=== PATIENT | female | born 1980 ===

== ENCOUNTER 2017-03-15 07:50 | Inpatient (IN) ==
[2017-03-15] MEDS: 0.9 % Sodium Chloride 1,000 ML IVC SCH (09:30)
[2017-03-15] MEDS ORDERED: Naloxone 0.4 MG/ML INJ IVP PRN (09:57)
[2017-03-15] MEDS ORDERED: Ondansetron 4 MG/2 ML VIAL IVP PRN (09:57)
--- NOTE | 2017-03-15 10:07 | Internal Med History&Physical ---
Date of Encounter: 03/20/17 Time of Encounter: 10:07 Assessment and Plan (1) Abdominal pain Status: Inactive 36/female transferred from [facility]. CT abdomen: Suggestive of diverticulitis. Plan: Admit as inpatient.: Patient needs IV antibiotics/serial abdominal exam/close monitoring Nothing by mouth. Intravenous ciprofloxacin 400 mg twice a day. Intravenous metronidazole 500 milligram 3 times a day. Pain control with morphine. Labs in the morning. Surgery on board. We will follow the recommendations from surgery. Qualifiers: Abdominal location: lower abdomen, unspecified Qualified Code(s): R10.30 - Lower abdominal pain, unspecified (2) Diverticulitis Status: Acute Possibility of her diverticulitis is extremely high. patient may need outpatient endoscopy/colonoscopy. The reason for this endoscopy/colonoscopy is patient has strong history of cancer (basal cell carcinoma of skin/calcifications in her breast.) . (3) DVT prophylaxis Status: Acute SCD Medical decision making: This patient has a moderate to severe risk of worsening in spite of being on appropriate medication to the underlying comorbid conditions. Internal Medicine - H&P: HPI Chief complaint: abdominal pain Admitted From: Hospital to Hospital Transfer Plans for Post Hospital Care: Home History of present illness: PCP: Nurse practitioner Shawn Sanz Brief past medical history: Basal cell carcinoma of the skin, kidney stones, seizure disorder, childhood asthma, History of present illness: Patient had ongoing GI symptoms in terms of her diarrhea for last 24 hours. The frequency and the consistency of stool is progressively getting worse and that is the reason patient was evaluated at [facility]. During that evaluation patient was complaining assessment abdominal pain. She underwent CT scan of the abdomen. CT scan of the abdomen was suggestive of possible diverticulitis/possible appendicitis. In view of this finding patient was transferred to this hospital for further evaluation. Upon my examination: Patient was complaining of ongoing left lower quadrant abdominal pain, nonradiating, localized, associated with the defecation and relieved by rest. Patient denies chest pain, shortness of breath, dizziness or constipation. Reason for transfer: Worsening diverticulitis/appendicitis for further management and may need a surgical intervention. family history: Diverticulosis/diverticulitis in both her Past Med Surg Social Fam HX - Past Medical History Medical history: asthma, cancer, kidney stones, seizures, other Psychiatric history: no psych history - Social History Smoking Status: Current every day smoker Packs per day: 2 cigarettes Smokeless Tobacco Status: No Alcohol use: occasionally Drug use: none Internal Medicine - H&P: Meds Naproxen [EC-Naprosyn] 500 mg PO BID 03/15/17 [History] Pnv with Ca,No.72/Iron/FA [Pnv Plus Multivit Tab] 1 tab PO DAILY [History] Zolpidem [Ambien] 10 mg PO HS PRN 03/15/17 [History] Ciprofloxacin [Cipro] 500 mg PO BID #14 tablet 03/17/17 [Rx] HYDROcodone/Acet 5/325 mg [[place] 5-325 mg] 1 tab PO Q6HR PRN #6 tablet 03/17/17 [Rx] metroNIDAZOLE [Flagyl] 500 mg PO TID #21 tablet 03/17/17 [Rx] 3 Allergy/AdvReac Type Severity Reaction Status Date / Time latex Allergy Rash Verified 03/15/17 09:42 All Systems PM: A 10-system review of systems was performed and is negative for pertinent findings except as documented above in the HPI. - Constitutional Constitutional: no chills, no fever(s), no night sweats - EENT Eyes: no change in vision, no discharge, no pain, no photophobia Ears: no ear discharge, no ear pain, no tinnitus Nose, mouth and throat: no dysphagia, no nasal discharge, no neck pain, no sore throat - Cardiovascular Cardiovascular ROS IM: no chest pain, no diaphoresis, no dyspnea, no lightheadedness, no palpitations, no syncope - Respiratory Respiratory: no cough, no dyspnea, no wheezing, no excessive phlegm production - Gastrointestinal Gastrointestinal: abdominal pain, belching, bloating, diarrhea, nausea, vomiting , no hematemesis, no hematochezia, no melena - Genitourinary Genitourinary: no change in urinary stream, no dysuria, no flank pain, no hematuria - Musculoskeletal Musculoskeletal ROS IM: no numbness, no tingling - Integumentary Integumentary IM: no rash, no unusual bruising - Neurological Neurological ROS: no confusion, no convulsions, no focal weakness, no numbness, no tingling, no tremor(s) - Hematologic/Lymphatic Hematologic/Lymphatic: no easy bruising - Constitutional Vitals: Temp Pulse Resp BP Pulse Ox 98.3 F 58 14 114/69 99 03/15/17 09:48 03/15/17 09:48 03/15/17 09:48 03/15/17 09:48 03/15/17 09:48 General appearance: Present: A&O X 3, pleasant, no acute distress, answers questions appropriately - Head Head exam: Present: atraumatic, normocephalic - Eye Eye exam: Present: PERRL, conjuntiva pink, sclera anicteric Pupils: Present: PERRL - Neck Neck exam general surgery: Present: supple, trachea midline. Absent: lymphadenopathy - Respiratory Respiratory exam: Present: CTAB. Absent: accessory muscle use, rales, rhonchi, wheezes - Cardiovascular Cardiovascular exam: Present: RRR, +S1, +S2. Absent: diastolic murmur, gallop, rubs, systolic murmur - GI/Abdominal GI/Abdominal exam: Present: normal bowel sounds, soft, tenderness, no peritoneal signs. Absent: distended - Extremities Exam Extremities exam: Present: warm, radial pulses palpable and symmetrical. Absent : calf tenderness, cyanotic, pedal edema - Neurological Exam Neurological exam: Present: CN II-XII intact, oriented X3, no focal deficits. Absent: pronater drift, facial droop, speech deficit - Skin Skin exam: Present: dry, intact Internal Med - H&P Results - Labs CBC & Chem 7: 03/16/17 03:45 03/16/17 03:45
[2017-03-15] MEDS: *HR* Morphine 2 MG/ML SYRINGE IVP PRN ×2 (10:38→13:58)
[2017-03-15 11:20] LABS: Bilirubin,Urine Negative (Negative); Blood,Urine Negative (Negative); Clarity,Urine Clear (Clear); Color,Urine Yellow (Yellow); Glucose,Urine (UA) Normal (Normal); Ketones,Urine 15 mg/dL (Negative); Leukocyte Esterase,Urine Negative (Negative); Nitrite,Urine Negative (Negative); PH,Urine 5.5 pH Units (5.0-8.0); Protein,Urine Negative (Neg-Trace); Specific Gravity,Urine 1.026 (1.010-1.025); Urobilinogen,Urine Normal (Normal)
[2017-03-15] MEDS: MetroNIDAZOLE 500 MG/100 ML 500 MG/100 ML BAG IVPB SCH ×2 (11:38→20:41)
[2017-03-15] MEDS ORDERED: MetroNIDAZOLE 500 MG/100 ML 500 MG/100 ML BAG IVPB SCH (16:00)
[2017-03-15] MEDS ORDERED: 0.9 % Sodium Chloride 500 ML IVC ONE (16:58)
--- NOTE | 2017-03-15 17:07 | General Surgery Consult Note ---
Date of Encounter: 03/15/17 Time of Encounter: 16:45 History of Present Illness Reason for consult: abdominal pain Requesting physician: Bentley Miller History of present illness: 36-year-old female transferred from [facility] after presenting there with acute onset right-sided abdominal pain with nausea. The patient indicates symptoms started in the epigastrium approximately 1500 or 1600 , 03/14/17. The patient describes severe nausea and pain preventing her from sleep. She presented to the [facility] ED early this a.m. for further evaluation and treatment. Laboratories were completely unremarkable CT of the abdomen and pelvis, which I was ultimately able to review with [facility], tiny bilateral renal calculi without hydronephrosis; mild injection of the fat in the right lower quadrant surrounding the appendix and cecum along with cecal diverticulosis. The appendix appeared normal in caliber and filled with air. The normal appearing appendix led the radiologist to conclude that the patient' s symptoms were most likely secondary to cecal diverticulitis or early colitis. The patient's symptoms were significant enough to transfer the patient to [facility] for further evaluation and treatment including surgical consultation. Past medical history: Asthma, skin cancer (basal cell carcinoma), kidney stones and a seizure disorder. Surgical history: Removal of a basal cell carcinoma from the posterior thorax; bilateral breast biopsies for benign disease Allergies: No known drug allergies but the patient believes she is allergic to latex (latex testing not completed) Medications: No routine home medications Medical records indicate prior prescriptions: Naprosyn 500 mg by mouth twice a day; vitamins 1 by mouth daily zolpidem 10 mg by mouth daily at bedtime as needed for sleep Social history: The patient indicates continued tobacco use but not on a daily basis; she is vague as to quantity and frequency. Patient admits to rare alcoholic beverage again vague as to quantity and frequency. She denies any illicit drug use. Patient states that she is Family history: History of diverticulosis/diverticulitis affecting both parents On physical examination: Age-appropriate female in no obvious distress, resting comfortably in her hospital bed. Patient EKG has been continuously nauseated since her transfer to [facility]. No emesis. Maximum temperature 99.8, pulse 61, respirations 16, blood pressure 110/69; SPO2 on room air 99-100% Skin: Warm, no obvious jaundice Lungs: Clear bilaterally to auscultation, no obvious abdominal pain with deep inspiration Cardiac: Regular rate, no appreciable murmurs Abdomen: Soft, nondistended with tenderness in the epigastrium; minimal tenderness in the right lower quadrant. No tenderness left lower quadrant. No discernible intra-abdominal masses, no rebound. Active bowel sounds. Extremities: No obvious clubbing, cyanosis, or edema. Laboratories: White count 7.0, hemoglobin 13.1, hematocrit 38.6; platelet count 276,000; differential within normal limits. Electrolytes notable for chloride of 110 and otherwise normal; BUN 13, creatinine 0.73. Levaquin 0.6, AST 19, ALT 10, alkaline phosphatase 63; lipase 15; phosphorus 2.0, magnesium 1.9 Urinalysis: Clear yellow urine with specific gravity less than or equal to 1.005 ; ketones 15; no significant cell count Impression: 36-year-old female with new onset right-sided abdominal pain and nausea. To clinical examination, the pain is mid epigastrium with very little right lower quadrant findings. CT is suggestive of cecal diverticulitis or early colitis, however, acute appendicitis cannot be entirely excluded. It is possible for a CT to be falsely negative in the first 24 hours of abrupt onset symptoms. Recommendations: Maintain nothing by mouth but allow ice chips sparingly IV antibiotics, Cipro and metronidazole initiated on transfer to [facility] Repeat labs in the a.m. Repeat abdominal exams; I will follow along with you. My findings and recommendations have been discussed with the patient and her family in attendance. Past Med Surg Social Fam HX - Past Medical History Medical history: asthma, cancer, kidney stones, seizures, other Psychiatric history: no psych history - Social History Smoking Status: Current every day smoker Packs per day: 2 cigarettes Smokeless Tobacco Status: No Alcohol use: occasionally Drug use: none Medications and Allergies Naproxen [EC-Naprosyn] 500 mg PO BID 03/15/17 [History] Pnv with Ca,No.72/Iron/FA [Pnv Plus Multivit Tab] 1 tab PO DAILY [History] Zolpidem [Ambien] 10 mg PO HS PRN 03/15/17 [History] 3 Allergy/AdvReac Type Severity Reaction Status Date / Time latex Allergy Rash Verified 03/15/17 09:42 Review of Systems All systems PM: A 10-system review of systems was performed and is negative for pertinent findings except as documented above in the HPI. General Surgery Exam Initial Vital Signs Temp Pulse Resp BP Pulse Ox 98.3 F 58 14 114/69 99 03/15/17 09:48 03/15/17 09:48 03/15/17 09:48 03/15/17 09:48 03/15/17 09:48 Exam Initial Vital Signs Temp Pulse Resp BP Pulse Ox 98.3 F 58 14 114/69 99 03/15/17 09:48 03/15/17 09:48 03/15/17 09:48 03/15/17 09:48 03/15/17 09:48 Results - Labs Abnormal lab results Ur Specific [place] 1.026 (1.010-1.025) H 03/15/17 11:00 Urine Ketones 15 mg/dL (Negative) H 03/15/17 11:00 All other labs normal. Consult Discharge Plan - Plan Referrals: Shawn Sanz CLOTH MERCERIZING SUPERVISOR [Primary Care Provider] -
[2017-03-15] MEDS: Pantoprazole 40 MG VIAL IVP SCH (17:22)
[2017-03-15] MEDS: *HR* HYDROmorphone 2 MG/ML SYRINGE IVP PRN ×2 (17:24→20:42)
[2017-03-15] MEDS: *HR* Promethazine 25 MG/ML VIAL IVP PRN ×2 (17:24→21:23)
[2017-03-16] MEDS: *HR* HYDROmorphone 2 MG/ML SYRINGE IVP PRN ×5 (01:15→19:54)
[2017-03-16] MEDS: *HR* Promethazine 25 MG/ML VIAL IVP PRN ×2 (01:16→05:11)
[2017-03-16] MEDS: 0.9 % Sodium Chloride 1,000 ML IVC SCH (02:36)
[2017-03-16] MEDS: MetroNIDAZOLE 500 MG/100 ML 500 MG/100 ML BAG IVPB SCH ×3 (04:08→19:53)
[2017-03-16 04:42] LABS: Basophils % 0.2 %; Eosinophils # 0.1 K/mcL (0.0-0.6); Eosinophils % 2.7 %; Hematocrit 34.8 % (35.3-44.9); Hemoglobin 11.1 g/dL (11.5-15.4); Immature Granulocytes % 0.2 % (0-4); Lymphocytes # 1.2 K/mcL (0.6-4.6); Lymphocytes % 24.8 %; Mean Corpuscular HGB Conc 31.9 g/dL (31.6-35.5); Mean Corpuscular Hemoglobin 29.1 pg (28.0-33.3); Mean Corpuscular Volume 91.1 fL (83.0-100.0); Mean Platelet Volume 10.2 fL (9.4-12.4); Monocytes # 0.6 K/mcL (0.0-1.3); Monocytes % 12.8 %; Neutrophils # 2.8 K/mcL (1.6-8.9); Platelet Count 229 K/mcL (140-400); Red Blood Count 3.82 M/mcL (3.82-4.97); Red Cell Distribution Width 12.3 % (11.5-14.5); Segmented Neutrophils % 59.3 %
[2017-03-16 04:45] LABS: INR 1.3; Prothrombin Time 13.9 Seconds (9.4-12.1)
[2017-03-16 04:48] LABS: Activated Partial Thrombo Time 30.7 Seconds (26.0-36.0)
[2017-03-16 05:04] LABS: Alanine Aminotransferase 8 Units/L (7-52); Albumin 3.4 g/dL (3.5-5.7); Albumin/Globulin Ratio 1.7 (1.1-2.2); Alkaline Phosphatase 44 Units/L (34-104); Aspartate Amino Transferase 14 Units/L (13-39); BUN/Creatinine Ratio 14 (6-26); Bilirubin,Total 0.3 mg/dL (0.3-1.0); Blood Urea Nitrogen 10 mg/dL (6-20); Calcium 8.3 mg/dL (8.6-10.3); Carbon Dioxide 24 mEq/L (23-29); Chloride 110 mEq/L (98-107); Chol/HDL Ratio 2.5 (0-4.9); Cholesterol 107 mg/dL (< 200); Glucose 121 mg/dL (70-105); HDL Cholesterol 42 mg/dL (40-59); LDL Cholesterol,Calculated 57 mg/dL (0-99); Magnesium 1.8 mg/dL (1.6-2.6); Osmolality,Calculated 290 (280-300); Phosphorous 2.3 mg/dL (2.7-4.5); Potassium 3.9 mEq/L (3.5-5.1); Sodium 140 mEq/L (136-145); Total Protein 5.4 g/dL (6.4-8.9); Triglycerides 42 mg/dL (< 150); eGFR For African Americans > 60 (> 60); eGFR For Non-African Americans > 60 (> 60)
[2017-03-16] MEDS: Pantoprazole 40 MG VIAL IVP SCH (10:28)
--- NOTE | 2017-03-16 11:02 | Internal Med Progress Note ---
Date of Encounter: 03/16/17 Time of Encounter: 11:00 - Assessment and plan (1) Diverticulitis Current Visit: Yes Status: Acute Assessment and plan: Continue conservative management for diverticulitis. Continue with IV Cipro and Flagyl. Continue with IV fluids. I will give her clear liquid diet today and advance as tolerated by tomorrow. Appreciate surgery's. No plans for surgery. Continue with pain control and antiemetics (2) DVT prophylaxis Current Visit: Yes Status: Acute Assessment and plan: Patient is ambulating. - Subjective Interval history: Patient was seen and examined. There has been no acute events. She says her abdominal pain is significantly improved. She has used Dilaudid IV sporadically. She has been afebrile. She has been nothing by mouth. She is asking to eat. - Constitutional Vitals: Temp Pulse Resp BP Pulse Ox 98.4 F 64 16 112/66 100 03/16/17 10:36 03/16/17 10:36 03/16/17 10:36 03/16/17 10:36 03/16/17 10:36 General appearance: Present: A&O X 3, pleasant, no acute distress, answers questions appropriately Exam: GEN: NAD CVS: RRR. S1, S2, No m/r/g RESP: CTAB ABD: Soft, there is mild tenderness in the left upper and lower quadrants ND, + BS EXT: No edema. 2+ DP. No rashes NEURO: Nonfocal Internal Medicine: Result - Labs CBC & Chem 7: 03/16/17 03:45 03/16/17 03:45 Labs: Short CBC 03/16/17 Range/Units 03:45 WBC 4.8 (4.3-11.1) K/mcL Hgb 11.1 L D (11.5-15.4) g/dL Hct 34.8 L (35.3-44.9) % Plt Count 229 (140-400) K/mcL Neutrophils # 2.8 (1.6-8.9) K/mcL BMP 03/16/17 03:45 Sodium 140 Potassium 3.9 Chloride 110 H Carbon Dioxide 24 BUN 10 Creatinine 0.74 Glucose 121 H Calcium 8.3 L Liver Function 03/16/17 Range/Units 03:45 Total Bilirubin 0.3 (0.3-1.0) mg/dL AST 14 (13-39) Units/L ALT 8 (7-52) Units/L Alkaline Phosphatase 44 (34-104) Units/L Albumin 3.4 L (3.5-5.7) g/dL Urine 03/15/17 Range/Units 11:00 Urine Color Yellow (Yellow) Urine Clarity Clear (Clear) Urine pH 5.5 (5.0-8.0) pH Units Ur Specific [place] 1.026 H (1.010-1.025) Urine Protein Negative (Neg-Trace) mg/dL Urine Glucose (UA) Normal (Normal) mg/dL - ABG Interpretation ABG results: PT/INR, D-dimer PT 13.9 Seconds (9.4-12.1) H 03/16/17 03:45 Consult Discharge Plan - Plan Referrals: Shawn Sanz, SPORTS FITNESS AND WELLNESS DIRECTOR [Primary Care Provider] -
--- NOTE | 2017-03-16 17:40 | General Surgery Progress Note ---
Date of Encounter: 03/16/17 Time of Encounter: 17:31 Subjective Patient reports: feels better Narrative: General Surgery - patient feeling better; tolerating clear liquids. No N/V. Patient remains afebrile, most recently 98.0, pulse 64, respirations 14, blood pressure 109/67 Lungs: Clear; no pain on deep inspiration Abdomen: Soft, nondistended, minimal residual tenderness in the right lower quadrant. No rebound. No appreciable intra-abdominal masses. Active bowel sounds. CT abdomen/pelvis reviewed - the appendix is described as normal/air filled. Wray are not thickened. Pericecal inflammation noted but does not appear to be related to the appendix. Laboratories: White count 4.8, hemoglobin 11.1 with hematocrit 44.8- consistent with IV fluids; differential within normal limits Electrolytes, BUN, creatinine normal limits Urine output 1400 mL in the last 24 hours. Again reflective of IV hydration/ IV fluids. Impression: Pericecal inflammation most likely due to localized diverticulitis responding to antibiotics. Tolerating clear liquids Recommendations: No surgical intervention required at this time, however, I do recommend colonoscopy in 6-8 weeks following resolution of the acute cecal diverticulitis. An appropriate referral to me or any other physician capable of performing colonoscopies can be arranged by the patient's PCP at that time. Thank you for this consultation, I will sign off. Objective Vital Signs - Last 8 Hours Temp Pulse Resp BP Pulse Ox 03/16/17 14:35 98.0 F 64 14 109/67 98 03/16/17 10:36 98.4 F 64 16 112/66 100 Intake and Output 03/16/17 03/16/17 03/16/17 07:59 15:59 23:59 Intake Total 420 / 420 1440 / 1440 200 / 200 Output Total 850 / 850 550 / 550 Balance -430 / -430 890 / 890 200 / 200 Intake: IV Fluids 300 / 300 800 / 800 200 / 200 0.9 % Sodium Chloride 1,000 ML 700 / 700 @ 70 mls/hr IVC .[id number] [facility] Rx #:[id number] Cipro Premix 400 MG/200 ML 400 200 / 200 200 / 200 mg In 200 ml @ 200 mls/hr IVPB Q12H [facility] Rx#:[id number] Flagyl Premix 500 MG/100 ML 500 100 / 100 100 / 100 mg In 100 ml @ 100 mls/hr IVPB Q8H [facility] Rx#:[id number] Oral 120 / 120 640 / 640 Output: Urine 850 / 850 550 / 550 Other: Meal Clear Percent of Meal Consumed 0% # Bowel Movements 0 Weight 49.895 kg Blood Glucose* 74 Patient Weight 03/16/17 23:59 Weight 49.895 kg - Labs 03/16/17 03:45 03/16/17 03:45 Diabetes panel 03/16/17 Range/Units 03:45 Sodium 140 (136-145) mEq/L Potassium 3.9 (3.5-5.1) mEq/L Chloride 110 H (98-107) mEq/L Carbon Dioxide 24 (23-29) mEq/L BUN 10 (6-20) mg/dL Creatinine 0.74 (0.60-1.20) mg/dL Glucose 121 H (70-105) mg/dL Calcium 8.3 L (8.6-10.3) mg/dL AST 14 (13-39) Units/L ALT 8 (7-52) Units/L Alkaline Phosphatase 44 (34-104) Units/L Albumin 3.4 L (3.5-5.7) g/dL Triglycerides 42 (< 150) mg/dL HDL Cholesterol 42 (40-59) mg/dL Calcium panel 03/16/17 Range/Units 03:45 Calcium 8.3 L (8.6-10.3) mg/dL Phosphorus 2.3 L (2.7-4.5) mg/dL Albumin 3.4 L (3.5-5.7) g/dL Pituitary panel 03/16/17 Range/Units 03:45 Sodium 140 (136-145) mEq/L Potassium 3.9 (3.5-5.1) mEq/L Chloride 110 H (98-107) mEq/L Carbon Dioxide 24 (23-29) mEq/L BUN 10 (6-20) mg/dL Creatinine 0.74 (0.60-1.20) mg/dL Glucose 121 H (70-105) mg/dL Calcium 8.3 L (8.6-10.3) mg/dL Adrenal panel 03/16/17 Range/Units 03:45 Sodium 140 (136-145) mEq/L Potassium 3.9 (3.5-5.1) mEq/L Chloride 110 H (98-107) mEq/L Carbon Dioxide 24 (23-29) mEq/L BUN 10 (6-20) mg/dL Creatinine 0.74 (0.60-1.20) mg/dL Glucose 121 H (70-105) mg/dL Calcium 8.3 L (8.6-10.3) mg/dL Total Bilirubin 0.3 (0.3-1.0) mg/dL AST 14 (13-39) Units/L ALT 8 (7-52) Units/L Alkaline Phosphatase 44 (34-104) Units/L Albumin 3.4 L (3.5-5.7) g/dL Consult Discharge Plan - Plan Referrals: Shawn Sanz, TIRE SERVICE TECHNICIAN [Primary Care Provider] -
[2017-03-16] MEDS: Ondansetron 4 MG/2 ML VIAL IVP PRN (17:58)
[2017-03-17] MEDS: *HR* HYDROmorphone 2 MG/ML SYRINGE IVP PRN ×2 (00:25→04:46)
[2017-03-17] MEDS: Ondansetron 4 MG/2 ML VIAL IVP PRN (00:33)
[2017-03-17] MEDS: MetroNIDAZOLE 500 MG/100 ML 500 MG/100 ML BAG IVPB SCH (03:31)
[2017-03-17] MEDS ORDERED: *HR* HYDROcodone/Acet 5/325 mg TABLET PO PRN (05:05)
[2017-03-17] MEDS: *HR* Promethazine 25 MG/ML VIAL IVP PRN (05:11)
[2017-03-17 07:39] VITALS: BP 101/66
[2017-03-17] MEDS: Pantoprazole 40 MG VIAL IVP SCH (08:50)
--- NOTE | 2017-03-17 09:24 | Discharge Summary ---
Date of Encounter: 03/17/17 Time of Encounter: 09:30 - Discharge Diagnosis (1) Diverticulitis Priority: Primary Status: Acute - Discharge Medications Prescriptions: HYDROcodone/Acet 5/325 mg [[place] 5-325 mg] 1 tab PO Q6HR PRN #6 tablet PRN Reason: Pain Ciprofloxacin [Cipro] 500 mg PO BID #14 tablet metroNIDAZOLE [Flagyl] 500 mg PO TID #21 tablet Home Medications: Naproxen [EC-Naprosyn] 500 mg PO BID 03/15/17 [History] Pnv with Ca,No.72/Iron/FA [Pnv Plus Multivit Tab] 1 tab PO DAILY [History] Zolpidem [Ambien] 10 mg PO HS PRN 03/15/17 [History] Ciprofloxacin [Cipro] 500 mg PO BID #14 tablet 03/17/17 [Rx] HYDROcodone/Acet 5/325 mg [[place] 5-325 mg] 1 tab PO Q6HR PRN #6 tablet 03/17/17 [Rx] metroNIDAZOLE [Flagyl] 500 mg PO TID #21 tablet 03/17/17 [Rx] Allergies/Adverse Reactions: 3 Allergy/AdvReac Type Severity Reaction Status Date / Time latex Allergy Rash Verified 03/15/17 09:42 Date of admission: 03/15/17 09:57 Primary care physician: Shawn Sanz CNP Consults: 03/15/17 10:01 Consult to Surgery [CONS] Routine Consulting Provider: [facility] Reason for Consult: ? Appendicitis unlikely. High probability of diverticulitis. Call Completed: Yes - Patient Status Disposition: Home, Self-Care Condition: Fair Overall status at discharge: patient is back to baseline - Discharge Instructions Instructions: Diverticulitis (DC) Follow Up With: Shawn Sanz CNP [Primary Care Provider] - Forms: Inpatient Work/School Release - Diet and Activity Activity: resume usual activities as tolerated Diet: advance to your usual diet (start with full liquid diet today and tomorrow and advance to regular as tolerated) Hospital course: Ms. Mederos is a 36 year old female with history of basal cell carcinoma of the skin , kidney stones, seizure disorder, childhood asthma, who presented to us with complaints of abdominal pain that has been progressively getting worse. She underwent a CT of abdomen and pelvis which showed possible diverticulitis versus appendicitis. She was evaluated by surgery who thought this is mostly diverticulitis. She was treated conservatively with IV fluids and bowel rest as well as IV Cipro and Flagyl. She had her diet advanced slowly. She was tolerating diet on 03/17/2017 was discharged home with follow-up with with her primary care physician. We recommended the patient be referred to Dr. de guzman in about 6 weeks for colonoscopy. - Time Spent with Patient Total time spent providing and/or coordinating discharge services: Greater than 30 minutes - Constitutional Vitals: Temp Pulse Resp BP Pulse Ox 98.3 F 50 12 101/66 98 03/17/17 07:15 03/17/17 07:15 03/17/17 07:15 03/17/17 07:15 03/17/17 07:15 General appearance: Present: A&O X 3, pleasant, no acute distress, answers questions appropriately Exam: GEN: NAD CVS: RRR. S1, S2, No m/r/g RESP: CTAB ABD: Soft, NT, ND, +BS EXT: No edema. 2+ DP. No rashes NEURO: Nonfocal - VTE Documentation of Mechanical Device: Intermittent pneumatic compression device
== END 2017-03-17 10:28 | disposition home or self-care (01) | DRG 392 ==
LOC: 3ANU
PROVIDERS: ADMIT Internal Medicine; ATTEND Family Medicine